=== PATIENT | male | born 1945 | race Asian ===

== ENCOUNTER 2017-06-20 18:33 | Inpatient (IN) | payer MEDICARE ==
[~2017-06-20] VITALS: Ht 180.3 cm; Wt 110.2 kg
[~2017-06-20 18:33] MED LIST: HYDR-3927 PO; LISI10TA5 PO; METF500T4 PO
[2017-06-21] MEDS ORDERED: SODIUM CHLORIDE 0.9% 500 ML IV ONE (00:30)
[2017-06-21 00:54] LABS: BASOPHILS % 1.3 % (0.0-2.0); EOSINOPHILS % 5.3 % (0.0-5.0); HEMATOCRIT. 40.2 % (42.0-52.0); HEMOGLOBIN. 13.6 g/dL (14.0-18.0); LYMPHOCYTES % 30.4 % (20.0-50.0); MEAN CORPUSCULAR HEMOGLOBIN 29.3 pg (28.0-32.0); MEAN CORPUSCULAR VOLUME 86.9 fL (80.0-94.0); MEAN PLATELET VOLUME 8.2 fl (7.4-10.4); MONOCYTES % 7.3 % (2.0-8.0); NEUTROPHILS % 55.7 % (40.0-76.0); PLATELET 257 x1000/uL (130-400); RED BLOOD CELL COUNT 4.63 mill/uL (4.7-6.1); RED CELL DISTRIBUTION WIDTH 13.4 % (11.6-14.6)
[2017-06-21 01:01] LABS: CHLORIDE 100 mEq/L (98-107)
[2017-06-21 01:09] LABS: CARBON DIOXIDE 28 mEq/L (21-32)
[2017-06-21 01:40] LABS: CLARITY URINE CLEAR (CLEAR); COLOR URINE YELLOW (YELLOW); GLUCOSE URINE 3+ (NEGATIVE); KETONES URINE NEGATIVE (NEGATIVE); LEUKOCYTE ESTERASE URINE NEGATIVE (NEGATIVE); NITRITE URINE NEGATIVE (NEGATIVE); OCCULT BLOOD URINE TRACE (NEGATIVE); PH URINE 5.5 (4.5-8.0); PROTEIN URINE 3+ (NEGATIVE); SPECIFIC GRAVITY URINE 1.021 (1.005-1.030); UROBILINOGEN URINE 0.2 E.U./dL (0.2-1.0)
[2017-06-21 01:56] LABS: *AMPHETAMINES SCREEN URINE NEGATIVE (NEGATIVE); *BARBITURATES SCREEN URINE NEGATIVE (NEGATIVE); *BENZODIAZEPINES SCREEN URINE NEGATIVE (NEGATIVE); *COCAINE SCREEN URINE NEGATIVE (NEGATIVE); CANNABINOID URINE SCREEN NEGATIVE (NEGATIVE); METHADONE URINE SCREEN NEGATIVE (NEGATIVE); OPIATES URINE SCREEN NEGATIVE (NEGATIVE); PHENCYCLIDINE URINE SCREEN NEGATIVE (NEGATIVE)
[2017-06-21 05:54] VITALS: BP 145/62
[2017-06-21 05:55] VITALS: BP 145/62
[2017-06-21] MEDS ORDERED: MAGNESIUM/ALUMINUM HYDROXIDE/SIMETHICONE 30ML UDC PO PRN (07:00)
[2017-06-21] MEDS ORDERED: LORAZEPAM 2MG/ML CPJ IV PRN (07:00)
[2017-06-21] MEDS ORDERED: DOCUSATE SODIUM 100MG CAPSULE PO PRN (07:00)
[2017-06-21] MEDS ORDERED: HYDROMORPHONE HCL/PF 2MG/ML CPJ IV PRN (07:00)
[2017-06-21] MEDS ORDERED: IPRATROPIUM/ALBUTEROL 0.5-3(2.5)MG/3ML NEB INH PRN (07:00)
[2017-06-21] MEDS ORDERED: ONDANSETRON HCL 4MG/2ML VIAL IV PRN (07:00)
[2017-06-21] MEDS ORDERED: HYDROCODONE/ACETAMINOPHEN 5/325MG TABLET PO PRN ×2 (07:00→09:15)
[2017-06-21] MEDS ORDERED: SODIUM CHLORIDE 0.45% 1,000 ML IV SCH (07:00)
[2017-06-21] MEDS ORDERED: NA PHOS,M-B/NA PHOS,DI-BA ENEMA 118ML PR PRN (07:00)
[2017-06-21] MEDS ORDERED: DIPHENHYDRAMINE 50MG/ML VIAL IV PRN (07:00)
[2017-06-21] MEDS ORDERED: CLONIDINE 0.1MG TABLET PO PRN (07:00)
[2017-06-21] MEDS ORDERED: GUAIFENESIN 200MG/10ML SUGAR FREE UDC PO PRN (07:00)
[2017-06-21] MEDS ORDERED: ACETAMINOPHEN 325MG TABLET PO PRN (07:00)
[2017-06-21] MEDS ORDERED: DEXTROSE 50% WATER 50ML SYRINGE IV PRN (07:15)
[2017-06-21 08:00] VITALS: BP 138/53
[2017-06-21] MEDS: BLOOD SUGAR DIAGNOSTIC STRIP TEST SCH ×4 (08:22→21:08)
[2017-06-21] MEDS: ASPIRIN 81MG EC TABLET PO SCH (09:23)
[2017-06-21] MEDS: ENOXAPARIN 30MG/0.3ML SYR SUBCUT SCH ×2 (09:24→21:06)
[2017-06-21] MEDS: INSULIN LISPRO 100 UNITS/ML SUBCUT SCH ×4 (09:35→21:23)
[2017-06-21] MEDS: LISINOPRIL 10MG TABLET PO SCH (09:35)
[2017-06-21] MEDS: METFORMIN HCL 500MG TABLET PO SCH (09:35)
[2017-06-21 12:00] VITALS: BP 142/72
[2017-06-21] MEDS: SODIUM CHLORIDE 0.9% 1,000 ML IV SCH ×2 (12:00→21:08)
[2017-06-21 16:00] VITALS: BP 160/80
[2017-06-21 16:51] LABS: CREATINE KINASE 61 IU/L (39-308); CREATINE KINASE MB FRACTION 0.6 ng/mL (0.5-3.6); TROPONIN I < 0.02 ng/mL (0.00-0.04)
[2017-06-21] MEDS: LIDOCAINE HCL 4% CREAM 76GM TUBE TP PRN (17:06)
[2017-06-21 20:00] VITALS: BP 152/72
[2017-06-22] VITALS: BP_SYST 127; BP_SYST 147; BP_DIAS 66; BP_DIAS 70
[2017-06-22 01:12] LABS: CREATINE KINASE 54 IU/L (39-308); CREATINE KINASE MB FRACTION 0.8 ng/mL (0.5-3.6); TROPONIN I < 0.02 ng/mL (0.00-0.04)
[2017-06-22 06:17] LABS: BASOPHILS % 1.5 % (0.0-2.0); EOSINOPHILS % 5.8 % (0.0-5.0); HEMATOCRIT. 36.2 % (42.0-52.0); HEMOGLOBIN. 12.1 g/dL (14.0-18.0); LYMPHOCYTES % 32.4 % (20.0-50.0); MEAN CORPUSCULAR HEMOGLOBIN 29.2 pg (28.0-32.0); MEAN PLATELET VOLUME 8.5 fl (7.4-10.4); MONOCYTES % 6.9 % (2.0-8.0); NEUTROPHILS % 53.4 % (40.0-76.0); PLATELET 266 x1000/uL (130-400); RED BLOOD CELL COUNT 4.16 mill/uL (4.7-6.1); RED CELL DISTRIBUTION WIDTH 13.3 % (11.6-14.6)
[2017-06-22] MEDS: BLOOD SUGAR DIAGNOSTIC STRIP TEST SCH ×4 (06:22→21:21)
[2017-06-22 08:00] VITALS: BP 151/55
[2017-06-22] MEDS: ASPIRIN 81MG EC TABLET PO SCH (08:33)
[2017-06-22] MEDS: LISINOPRIL 10MG TABLET PO SCH (08:34)
[2017-06-22] MEDS: METFORMIN HCL 500MG TABLET PO SCH (08:34)
[2017-06-22] MEDS: ENOXAPARIN 30MG/0.3ML SYR SUBCUT SCH ×2 (08:36→21:20)
[2017-06-22] MEDS: INSULIN LISPRO 100 UNITS/ML SUBCUT SCH ×4 (08:36→21:19)
[2017-06-22] MEDS: LIDOCAINE HCL 4% CREAM 76GM TUBE TP PRN (08:36)
[2017-06-22 08:39] LABS: CARBON DIOXIDE 25 mEq/L (21-32); CHLORIDE 105 mEq/L (98-107); CREATINE KINASE MB FRACTION 0.8 ng/mL (0.5-3.6)
[2017-06-22 08:45] LABS: CREATINE KINASE 50 IU/L (39-308); HDL CHOLESTEROL 36 mg/dL (40-59); LDL CHOLESTEROL 170 mg/dL (5-100); T4 FREE 1.21 ng/dL (0.76-1.46)
[2017-06-22 12:00] VITALS: BP 138/58
[2017-06-22 16:00] VITALS: BP_SYST 160; BP_SYST 164; BP_DIAS 61; BP_DIAS 83
[2017-06-22] MEDS: SODIUM CHLORIDE 0.9% 1,000 ML IV SCH (18:02)
[2017-06-22 20:00] VITALS: BP 146/82
[2017-06-23] VITALS: BP 166/72
[2017-06-23 04:00] VITALS: BP 130/61
[2017-06-23] MEDS: BLOOD SUGAR DIAGNOSTIC STRIP TEST SCH ×2 (07:24→11:40)
[2017-06-23 08:00] VITALS: BP_SYST 146; BP_SYST 149; BP_DIAS 68; BP_DIAS 85
[2017-06-23] MEDS: ENOXAPARIN 30MG/0.3ML SYR SUBCUT SCH (08:30)
[2017-06-23] MEDS: METFORMIN HCL 500MG TABLET PO SCH (08:30)
[2017-06-23] MEDS: ASPIRIN 81MG EC TABLET PO SCH (08:30)
[2017-06-23] MEDS: LISINOPRIL 10MG TABLET PO SCH (08:30)
[2017-06-23] MEDS: INSULIN LISPRO 100 UNITS/ML SUBCUT SCH ×2 (08:34→12:40)
[2017-06-23 08:59] VITALS: BP 145/71
[2017-06-23 11:19] VITALS: BP 149/63
[2017-06-23 12:00] VITALS: BP 149/63
== END 2017-06-23 14:14 | disposition home or self-care (01) | DRG 682 ==
LOC: ER 21:14 → 7WST 06-21 02:20 → EDBEDREQ 06-21 03:45 → ENRESERV 06-21 04:13
PROVIDERS: ADMIT Internal Medicine; ATTEND Internal Medicine
DX: N17.0 Acute kidney failure with tubular necrosis (principal); G93.41 Metabolic encephalopathy; E87.0 Hyperosmolality and hypernatremia; E11.43 Type 2 diabetes mellitus with diabetic autonomic (poly)neuropathy; E46 Unspecified protein-calorie malnutrition; K31.84 Gastroparesis; D68.59 Other primary thrombophilia; E11.21 Type 2 diabetes mellitus with diabetic nephropathy; J98.11 Atelectasis; E11.65 Type 2 diabetes mellitus with hyperglycemia; E86.0 Dehydration; E66.9 Obesity, unspecified; Z68.33 Body mass index [BMI] 33.0-33.9, adult; E78.00 Pure hypercholesterolemia, unspecified; E78.5 Hyperlipidemia, unspecified; E87.70 Fluid overload, unspecified; I11.9 Hypertensive heart disease without heart failure; I25.10 Atherosclerotic heart disease of native coronary artery without angina pectoris; E11.51 Type 2 diabetes mellitus with diabetic peripheral angiopathy without gangrene; K21.9 Gastro-esophageal reflux disease without esophagitis; K59.00 Constipation, unspecified; Z79.84 Long term (current) use of oral hypoglycemic drugs; Z79.899 Other long term (current) drug therapy; Z86.73 Personal history of transient ischemic attack (TIA), and cerebral infarction without residual deficits
CPT/HCPCS: 36415; 70450; 71010; 80048; 80053; 80061; 80305; 81001; 82550; 82553; 82962; 83036; 83880; 84439; 84443; 84481; 84484; 85025; 85379; 93005; 93306; 93970; 96360; 96361; 97162; 99285; C1893; J1650; J1815; J7030; J7040

== ENCOUNTER 2019-08-30 13:19 | Emergency (ER) | payer MEDICARE ==
[~2019-08-30] VITALS: Ht 182.9 cm; Wt 118.0 kg
[~2019-08-30 13:19] MED LIST changes: -HYDR-3927 PO; +HYDR-4001 PO; +METF-414 PO; -METF500T4 PO
[2019-08-30 14:56] LABS: BASOPHILS % 0.4 % (0.0-2.0); EOSINOPHILS % 6.6 % (0.0-5.0); HEMOGLOBIN. 11.8 g/dL (14.0-18.0); LYMPHOCYTES % 19.8 % (20.0-50.0); MEAN CORPUSCULAR HEMOGLOBIN 27.7 pg (28.0-32.0); MEAN CORPUSCULAR VOLUME 84.8 fL (80.0-94.0); MEAN PLATELET VOLUME 8.5 fl (7.4-10.4); MONOCYTES % 6.7 % (2.0-8.0); NEUTROPHILS % 66.5 % (40.0-76.0); PLATELET 338 x1000/uL (130-400); RED BLOOD CELL COUNT 4.25 mill/uL (4.7-6.1); RED CELL DISTRIBUTION WIDTH 14.9 % (11.6-14.6)
[2019-08-30 15:04] LABS: PROTHROMBIN TIME 9.9 sec (9.6-11.0)
[2019-08-30 16:21] LABS: CHLORIDE 108 mEq/L (98-107)
[2019-08-30 16:25] LABS: ETHANOL BLOOD < 10 mg/dL
[2019-08-30] MEDS ORDERED: FUROSEMIDE 20MG/2ML VIAL IVP ONE (16:45)
[2019-08-30 17:17] LABS: CLARITY URINE CLEAR (CLEAR); COLOR URINE YELLOW (YELLOW); KETONES URINE NEGATIVE (NEGATIVE); LEUKOCYTE ESTERASE URINE NEGATIVE (NEGATIVE); NITRITE URINE NEGATIVE (NEGATIVE); OCCULT BLOOD URINE TRACE (NEGATIVE); PH URINE 6.5 (4.5-8.0); PROTEIN URINE 3+ (NEGATIVE); SPECIFIC GRAVITY URINE 1.018 (1.005-1.030)
[2019-08-30 17:31] VITALS: BP 178/93
[2019-08-30 17:31] LABS: *AMPHETAMINES SCREEN URINE NEGATIVE (NEGATIVE); *BARBITURATES SCREEN URINE NEGATIVE (NEGATIVE); *BENZODIAZEPINES SCREEN URINE NEGATIVE (NEGATIVE)
[2019-08-30 17:32] LABS: *COCAINE SCREEN URINE NEGATIVE (NEGATIVE); CANNABINOID URINE SCREEN NEGATIVE (NEGATIVE); METHADONE URINE SCREEN NEGATIVE (NEGATIVE); OPIATES URINE SCREEN NEGATIVE (NEGATIVE); PHENCYCLIDINE URINE SCREEN NEGATIVE (NEGATIVE)
== END 2019-08-30 17:50 | disposition left against medical advice (07) ==
LOC: ER 13:30 → ENRESERV 15:59 → CANRESERV 15:59 → ER 17:50 → CANBEDREQ 22:27
DX: I11.0 Hypertensive heart disease with heart failure (principal); I50.9 Heart failure, unspecified; G93.49 Other encephalopathy; E11.9 Type 2 diabetes mellitus without complications; F41.9 Anxiety disorder, unspecified; N28.9 Disorder of kidney and ureter, unspecified; K21.9 Gastro-esophageal reflux disease without esophagitis; Z86.73 Personal history of transient ischemic attack (TIA), and cerebral infarction without residual deficits; Z79.84 Long term (current) use of oral hypoglycemic drugs
CPT/HCPCS: 36415; 70450; 71045; 80053; 80305; 80320; 81003; 82140; 83605; 83690; 83880; 84484; 85025; 85610; 93005; 96374; 99284; J1940; G0480